=== PATIENT | male | born 1975 | race Caucasian/White ===

== ENCOUNTER 2017-05-26 10:54 | Emergency (ER) | payer OTHER ==
[~2017-05-26] VITALS: Ht 177.8 cm; Wt 103.7 kg
[2017-05-26] MEDS ORDERED: ZIAC 5/6.251 TABLET PO (11:24)
[2017-05-26] MEDS ORDERED: FENOFIBRATE40 MG PO (11:25)
[2017-05-26 11:32] LABS: BASOPHIL COUNT 0.1 K/uL (0-0.1); EOSINOPHIL (%) 0 % (0-5); HEMATOCRIT 51.3 % (38.0-50.0); IMMATURE GRANULOCYTE (%) 0.8 % (0.0-0.7); IMMATURE GRANULOCYTE COUNT 0.1 K/uL; MCH 30.6 PG (29.0-34.0); MCHC 34.7 G/DL (30.0-36.0); MCV 88.3 FL (86-99); MONOCYTE (%) 9.2 % (3-12); MONOCYTE COUNT 1.5 K/uL (0-0.8); NEUTROPHIL (%) 77.7 % (45-76); PLATELET COUNT 151 K/uL (156-360); RBC DIS.WIDTH-SD 38.2 % (39-53); RED BLOOD COUNT 5.81 M/uL (4.00-5.50); WHITE BLOOD COUNT 16.7 K/uL (4.1-10.2)
[2017-05-26 12:06] LABS: INFLUENZA A VIRAL ANTIGEN NEGATIVE; INFLUENZA B VIRAL ANTIGEN NEGATIVE
[2017-05-26 12:13] LABS: CHLORIDE 103 mEq/L (99-109); POTASSIUM 3.6 mEq/L (3.7-5.4); SODIUM 135 mEq/L (136-147)
[2017-05-26 12:15] LABS: GLUCOSE 112 mg/dL (70-99)
[2017-05-26 12:16] LABS: ANION GAP 10 MEQ/L (2-14)
[2017-05-26 12:17] LABS: TOTAL BILIRUBIN 1.2 mg/dL (0.0-1.0)
[2017-05-26 12:18] LABS: ALKALINE PHOSPHATASE 63 IU/L (3-129)
[2017-05-26 12:19] LABS: GFR ESTIMATE (CALCULATED) > 59 mL/min/
[2017-05-26 12:20] LABS: UREA NITROGEN (BUN) 9 mg/dL (9-23)
[2017-05-26 12:53] LABS: ADD MIUA? YES; BILIRUBIN NEGATIVE; BLOOD MODERATE; COLOR YELLOW ((YELLOW)); GLUCOSE (STRIP) NEGATIVE; KETONES NEGATIVE; LEUKOCYTES NEGATIVE; NITRITE NEGATIVE; PROTEIN (STRIP) 30; SPECIFIC GRAVITY 1.015 (1.000-1.030); UROBILINOGEN 0.2 MG/DL (0.2-1.0)
[2017-05-26 13:03] LABS: BACTERIA NONE SEEN /HPF; EPITHELIAL CELLS NONE SEEN /HPF; MUCUS TRACE /LPF; UCUL ADDED? NO; WHITE BLOOD CELLS 0-5 /HPF (0-5)
[2017-05-26] MEDS ORDERED: LEVAQUIN750 MG PO (15:59)
[2017-05-26 16:24] VITALS: BP 110/63
== END 2017-05-26 16:26 | disposition home or self-care (01) ==
LOC: EME 10:54
PROVIDERS: Emergency Medicine
DX: J18.9 Pneumonia, unspecified organism (principal); E78.5 Hyperlipidemia, unspecified; I10 Essential (primary) hypertension; F17.200 Nicotine dependence, unspecified, uncomplicated
CPT/HCPCS: 71020; 74176; 80053; 81003; 83605; 85025; 87040; 87502; 99281; 99285; J1885; J2765; J7030